=== PATIENT | male | born 1990 | race Two or more races ===

== ENCOUNTER 2018-05-16 12:27 | Emergency (ER) | payer MEDICAID ==
[~2018-05-16] VITALS: Ht 167.6 cm; Wt 78.9 kg
--- NOTE | 2018-05-16 12:27 | NUR ---
RLQ ABDOMINAL PAIN X 5 DAYS, SKIN RASH NOTED ON RLQ ABD X 5 DAYS. TO ER BED 2, AWAITING MD MURPHY
--- NOTE | 2018-05-16 13:11 | NUR ---
DONNIE MEZA AT BEDSIDE
[2018-05-16 13:23] LABS: BASOPHILS % (AUTO) 0.7 % (0.0-2.0); EOSINOPHILS % (AUTO) 5.7 % (0.0-6.0); HEMATOCRIT 50 % (39-51); HEMOGLOBIN 16.7 g/dL (13.5-17.5); LYMPHOCYTES # (AUTO) 1.9 /CMM (0.8-4.8); LYMPHOCYTES % (AUTO) 38.6 % (20.0-44.0); MEAN CORPUSCULAR HGB CONC 34 g/dl (31.0-36.0); MEAN CORPUSCULAR VOLUME 89 fL (80-96); MONOCYTES # (AUTO) 0.5 /CMM (0.1-1.30); NEUTROPHILS # (AUTO) 2.2 /CMM (1.8-8.9); PLATELET COUNT (AUTO) 275 /CMM (150-450); RED BLOOD CELL COUNT(AUTO) 5.56 MIL/uL (4.5-6.0)
[2018-05-16 13:32] LABS: CALCIUM, SERUM 9.4 mg/dL (8.5-10.1); POTASSIUM 4.6 mmol/L (3.5-5.1)
[2018-05-16 13:39] LABS: ALBUMIN 4.5 g/dL (3.4-5.0); BILIRUBIN,DIRECT 0.1 mg/dL (0.0-0.2); BILIRUBIN,TOTAL 0.5 mg/dL (0.2-1.0); TOTAL PROTEIN, SERUM 8.1 g/dL (6.4-8.2)
--- NOTE | 2018-05-16 13:55 | NUR ---
URINE SAMPLE SENT TO LAB
[2018-05-16 13:58] LABS: APPEARANCE,URINE Clear (CLEAR); BILIRUBIN,URINE Negative (NEGATIVE); BLOOD, URINE Negative Ery/uL (NEGATIVE); COLOR,URINE Yellow (YELLOW); KETONES,URINE Negative (NEGATIVE); LEUKOCYTE ESTERASE ,URINE Negative (NEGATIVE); NITRITE, URINE Negative (NEGATIVE); PROTEIN,URINE Negative (NEGATIVE); UGLUCOSE Negative (NEGATIVE); UROBILINOGEN,URINE 0.2 EU/dL (0.2)
--- NOTE | 2018-05-16 14:27 | NUR ---
Patient discharged to home in stable condition. Written and verbal after care instructions given. Patient verbalizes understanding of instruction.
[2018-05-16 14:29] VITALS: BP 122/70
== END 2018-05-16 14:30 | disposition home or self-care (01) ==
LOC: ER 12:30
DX: B02.9 Zoster without complications (principal)
CPT/HCPCS: 36415; 80048-TC; 80076-TC; 81000-TC; 83690-TC; 85025-TC; A6402

== ENCOUNTER → 2021-10-21 | Emergency (ER) | payer MEDICAID, OTHER ==
[~2021-10-21] VITALS: Ht 172.7 cm; Wt 77.1 kg
[~2021-10-21] MED LIST: AMOX-427 PO; AMOX/CLAVULANATE 875 MG TABLET ONE; AMOX/CLAVULANATE 875 MG TABLET PO ONE; IBUP-1955 PO
[2021-10-21 12:49] LABS: BILIRUBIN,URINE NEGATIVE (NEGATIVE); COLOR,URINE YELLOW (YELLOW); LEUKOCYTE ESTERASE ,URINE TRACE (NEGATIVE); NITRITE, URINE NEGATIVE (NEGATIVE); PROTEIN,URINE NEGATIVE (NEGATIVE); UGLUCOSE NEGATIVE (NEGATIVE); UROBILINOGEN,URINE 0.2 EU/dL (0.2)
[2021-10-21 13:10] LABS: BACTERIA,URINE Rare /HPF (None Seen); RBC,URINE 0-2 /HPF (0-2); SQUAMOUS EPITHELIAL CELL,UR Few /HPF (None Seen); WBC,URINE 21-50 /HPF (0-3)
--- NOTE | 2021-10-21 14:10 | NUR ---
BIBS c/o pain in lower right ab area radiating to back
--- NOTE | 2021-10-21 14:11 | NUR ---
Pt stated he had a UTI two weeks ago and showed prescriptin , dose, time, route said he drank two glasses of wine on two different nights while taking ABT, i educated importance of not drinking any alcohol when on ABT dose for the next ABT orders prescribed. pt understood
--- NOTE | 2021-10-21 14:12 | NUR ---
D/C patient with orders, educated and explained orders, dose, route, and explained again mportance of not drinking any alcohol while on the ABT Treatments.
[2021-10-21 14:16] VITALS: BP 118/72
== END | disposition home or self-care (01) ==
LOC: ER 11:17
DX: R10.31 Right lower quadrant pain (principal); R82.81 Pyuria; Z87.440 Personal history of urinary (tract) infections
CPT/HCPCS: 81001; 87086-TC